=== PATIENT | male | born 1935 | race Caucasian/White ===

== ENCOUNTER 2022-06-20 10:37 | Observation (INO) | payer OTHER ==
[~2022-06-20] VITALS: Ht 177.8 cm; Wt 116.8 kg
--- NOTE | 2022-06-20 10:42 | NUR ---
PT TO BED 1. GOWN AND VITAL TAKEN.
--- NOTE | 2022-06-20 10:44 | NUR ---
PT BIB DAUGHTER, AWAKE AND ALERT AOX4, NO SOB OR DISTRESS. PT WAS HERE IN THE HOSPITAL VISITIG HIS IN MED SURGE. PT STATED HE TOOK HIS GLACOMA EYE DROPS AND STARTED TO FEEK DIZZY AND WEAK. PT DENIES VOMITING, AND PAIN. PT HAS HX OF CHF, HTN, GLACOMA, THYROID, AND OPEN TEART SURGERY.
--- NOTE | 2022-06-20 10:45 | NUR ---
MD DR STODDARD AT BEDSIDE
[2022-06-20 10:49] VITALS: BP_SYST 130
--- NOTE | 2022-06-20 11:17 | NUR ---
COVID SWAB COLLECTED AND SENT TO LAB.
[2022-06-20 11:29] LABS: BASOPHILS % (AUTO) 0.4 % (0.0-2.0); EOSINOPHILS # (AUTO) 0.3 K/uL (0.0-0.4); EOSINOPHILS % (AUTO) 4.3 % (0.0-4.0); HEMATOCRIT 37.2 % (36-54); HEMOGLOBIN 12.3 g/dL (14.0-18.0); LYMPHOCYTES # (AUTO) 0.9 K/uL (1.0-5.5); LYMPHOCYTES % (AUTO) 14.8 % (20.5-51.5); MEAN CORPUSCULAR HEMOGLOBIN 32 pg (27-31); MEAN CORPUSCULAR HGB CONC 33 % (32-36); MEAN CORPUSCULAR VOLUME 97 fL (79.0-98.0); MONOCYTES # (AUTO) 0.5 K/uL (0.0-1.0); MONOCYTES % (AUTO) 7.9 % (1.7-9.3); NEUTROPHILS # (AUTO) 4.4 K/uL (1.8-7.7); NEUTROPHILS % (AUTO) 72.6 % (40.0-70.0); PLATELET COUNT (AUTO) 150 K/uL (130-430); RED BLOOD CELL COUNT(AUTO) 3.85 MIL/uL (4.2-6.2); RED CELL DISTRIBUTION WIDTH 14.6 % (9.0-15.0)
[2022-06-20] MEDS ORDERED: SYN50 PO (11:39)
[2022-06-20] MEDS ORDERED: METO25TA3 PO (11:39)
[2022-06-20] MEDS ORDERED: ISOS30TA85 PO (11:39)
[2022-06-20] MEDS ORDERED: SACU1TAB PO (11:39)
[2022-06-20] MEDS ORDERED: ASPI-1155 PO (11:39)
[2022-06-20] MEDS ORDERED: ALLO100T91 PO (11:39)
[2022-06-20] MEDS ORDERED: LIP10 PO (11:39)
[2022-06-20] MEDS ORDERED: FURO-150 PO (11:39)
[2022-06-20] MEDS ORDERED: FINA5TAB3 PO (11:39)
[2022-06-20] MEDS ORDERED: TAMS-11 PO (11:39)
--- NOTE | 2022-06-20 12:09 | NUR ---
Medication reconciliation completed with information provided by PATIENT LIST. Any prior medication reconciliation on file was reviewed and corrected.
[2022-06-20 12:10] LABS: ANION GAP 9 (5-15); CALCIUM 8.4 mg/dL (8.4-11.0); CHLORIDE 102 mmol/L (98-107); CREATININE 1.51 mg/dL (0.55-1.30); GLUCOSE 104 mg/dL (70-99); UREA NITROGEN, BLOOD 29 mg/dL (8-21)
[2022-06-20 12:17] LABS: ALANINE AMINOTRANSFERASE 11 U/L (12-78); ALBUMIN 3.4 g/dL (3.4-4.8); ASPARTATE AMINOTRANSFERASE 6 U/L (10-37); TOTAL BILIRUBIN 0.4 mg/dL (0.0-1.0)
[2022-06-20] MEDS ORDERED: HYDROcodone/ACETAMIN 10-325 MG TAB PO PRN (12:30)
[2022-06-20] MEDS ORDERED: ONDANSETRON HCL 4 MG/2 ML VIAL IVP PRN (12:30)
[2022-06-20] MEDS ORDERED: ACETAMINOPHEN 325 MG TABLET PO PRN ×2 (12:30→13:00)
[2022-06-20] MEDS ORDERED: ALBUTEROL SULFATE 0.083% 2.5 MG/3 ML VIAL.NEB INH PRN (12:30)
--- NOTE | 2022-06-20 12:43 | NUR ---
Admit bed requested Patient will be admitted to care of . Admitted to TELE unit. Diagnosis BRADYCARDIA/GEN WEAKNES Inpatient (Yes or No) Y Observation (Yes or No) N Orientation concerns or request close to nursing station (Yes or No) N Covid Status NEG On vent or bipap N Isolation requirements N Needs a sitter N From Home (Yes or if No enter name of facility) YES Requires Dialysis (Yes or No) N Med Rec Completed (Yes of No) Y
[2022-06-20] MEDS: NACL 0.9% 1,000 ML IV SCH (14:25)
--- NOTE | 2022-06-20 17:46 | NUR ---
Patient will be admitted to care of DR BUNCH. Admitted to TELE unit. Will go to room 102B. Belongings list completed. Complete and up to date summary report printed. SBAR report to be given at bedside with opportunity for questions.
[2022-06-20 18:06] VITALS: BP_SYST 144
--- NOTE | 2022-06-20 18:06 | NUR ---
receive the patient from the emergency room rn aox4 divehi speaking aox4 admitting diagnosis of bradycardia
--- NOTE | 2022-06-20 19:30 | NUR ---
Opening Note late entry Received patient resting in bed, no distress; Non labored breathing on room air. Family is visiting at bedside, they had questions. I answered their questions and informed Doctor will do rounds in morning. They requested a meal tray for him, and [employer] was unable to get food from cafeteria and sandwich from pantry will be provided
--- NOTE | 2022-06-20 22:15 | NUR ---
Tylenol late entry Patient reporting a mild headache and was given Tylenol. He swallowed tabs with water.
[2022-06-20 22:17] VITALS: BP_SYST 161
--- NOTE | 2022-06-20 22:20 | NUR ---
restroom, BM Patient ambulated to restroom with standby assist, he was steady. He reports BM. Returned to bed, safety precautions in place and call light w/in reach.
[2022-06-21 00:50] VITALS: BP_SYST 128
[2022-06-21] MEDS: LEVOTHYROXINE SODIUM 0.05 MG TABLET PO SCH (06:30)
[2022-06-21] MEDS: NACL 0.9% 1,000 ML IV SCH (06:31)
--- NOTE | 2022-06-21 06:36 | NUR ---
closing note Resting in comfortable position, no distress. Safety precautions in place. Administered Synthroid and hung new bag of NS; infusing well. Needs met throughout shift, will endorse care.
[2022-06-21 07:59] LABS: BASOPHILS % (AUTO) 0.4 % (0.0-2.0); EOSINOPHILS # (AUTO) 0.3 K/uL (0.0-0.4); EOSINOPHILS % (AUTO) 4.8 % (0.0-4.0); HEMATOCRIT 36.3 % (36-54); LYMPHOCYTES # (AUTO) 1.1 K/uL (1.0-5.5); LYMPHOCYTES % (AUTO) 19.8 % (20.5-51.5); MEAN CORPUSCULAR HEMOGLOBIN 32 pg (27-31); MEAN CORPUSCULAR HGB CONC 33 % (32-36); MEAN CORPUSCULAR VOLUME 96 fL (79.0-98.0); MONOCYTES # (AUTO) 0.4 K/uL (0.0-1.0); MONOCYTES % (AUTO) 7.8 % (1.7-9.3); NEUTROPHILS # (AUTO) 3.8 K/uL (1.8-7.7); NEUTROPHILS % (AUTO) 67.2 % (40.0-70.0); PLATELET COUNT (AUTO) 142 K/uL (130-430); RED BLOOD CELL COUNT(AUTO) 3.78 MIL/uL (4.2-6.2); RED CELL DISTRIBUTION WIDTH 14.8 % (9.0-15.0); WHITE BLOOD COUNT (AUTO) 5.7 K/uL (4.8-10.8)
[2022-06-21 09:03] LABS: ALANINE AMINOTRANSFERASE 19 U/L (12-78); ANION GAP 11 (5-15); ASPARTATE AMINOTRANSFERASE 13 U/L (10-37); CALCIUM 8.5 mg/dL (8.4-11.0); CHLORIDE 105 mmol/L (98-107); CREATININE 1.18 mg/dL (0.55-1.30); GLUCOSE 101 mg/dL (70-99); PHOSPHORUS 3.7 mg/dL (2.7-4.5); TOTAL BILIRUBIN 0.3 mg/dL (0.0-1.0); UREA NITROGEN, BLOOD 25 mg/dL (8-21)
[2022-06-21 09:14] VITALS: BP_SYST 156
[2022-06-21] MEDS: SACUBITRIL/VALSARTAN 24 MG-26 MG 1 TABLET PO SCH (09:47)
[2022-06-21] MEDS: ALLOPURINOL 100 MG TABLET (ZYLOPRIM) PO SCH (09:47)
[2022-06-21] MEDS: ASPIRIN 81 MG TAB.CHEW PO SCH (09:47)
[2022-06-21] MEDS: ISOSORBIDE MONONITRATE 30 MG TAB.ER.24H PO SCH (09:47)
[2022-06-21] MEDS: ATORVASTATIN 10 MG TABLET PO SCH (09:47)
[2022-06-21] MEDS: FINASTERIDE 5 MG TABLET (PROSCAR) PO SCH (09:47)
[2022-06-21] MEDS: TAMSULOSIN HCL 0.4 MG CAP PO SCH (09:47)
[2022-06-21 09:54] LABS: FREE T4 (FREE THYROXINE) 1.1 ng/dL (0.6-1.6); THYROID STIMULATING HORMONE 4.13 uIu/mL (0.34-4.82)
[2022-06-21] MEDS ORDERED: THEOPHYLLINE ANHYDROUS 300 MG TAB.SR.12H PO ONE (10:30)
[2022-06-21 12:00] VITALS: BP_SYST 149
[2022-06-21 16:00] VITALS: BP_SYST 151
[2022-06-21 20:00] VITALS: BP_SYST 143
[2022-06-21] MEDS: THEOPHYLLINE ANHYDROUS 300 MG TAB.SR.12H PO SCH (21:07)
[2022-06-22] VITALS: BP_SYST 133
[2022-06-22 02:41] VITALS: BP_SYST 141
--- NOTE | 2022-06-22 06:00 | NUR ---
Mr. Dennis has been assessed as indicated. He continues to deny pain. \he has not had a BM this shift, He has voided x1. He has a wheeled walker at the bedside. He has been visited by one of his sons this shift. He presently has no s/s of distress or discomfort. He has replaced his R hearing aide that he has allowed to charge over night. He does not have the Left hearing aide here. He states that it does not work and it is at home. He is resting quietly at this time
[2022-06-22] MEDS: LEVOTHYROXINE SODIUM 0.05 MG TABLET PO SCH (06:03)
--- NOTE | 2022-06-22 07:22 | NUR ---
Handoff has been given to Yanira
[2022-06-22 08:00] VITALS: BP_SYST 142
[2022-06-22] MEDS: FINASTERIDE 5 MG TABLET (PROSCAR) PO SCH (09:00)
[2022-06-22] MEDS: ASPIRIN 81 MG TAB.CHEW PO SCH (09:00)
[2022-06-22] MEDS: THEOPHYLLINE ANHYDROUS 300 MG TAB.SR.12H PO SCH (09:00)
[2022-06-22] MEDS: TAMSULOSIN HCL 0.4 MG CAP PO SCH (09:00)
[2022-06-22] MEDS: ISOSORBIDE MONONITRATE 30 MG TAB.ER.24H PO SCH (09:01)
[2022-06-22] MEDS: ATORVASTATIN 10 MG TABLET PO SCH (09:01)
[2022-06-22] MEDS: SACUBITRIL/VALSARTAN 24 MG-26 MG 1 TABLET PO SCH (09:01)
[2022-06-22] MEDS: ALLOPURINOL 100 MG TABLET (ZYLOPRIM) PO SCH (09:01)
[2022-06-22 11:21] VITALS: BP_SYST 142
[2022-06-22 15:24] VITALS: BP_SYST 117
[2022-06-22 15:58] VITALS: BP_SYST 117
--- NOTE | 2022-06-22 16:51 | NUR ---
RN NOTES: DISCHARGE INSTRUCTIONS GIVEN TO THE DAUGHTER. VERBALIZED UNDERSTANDING.PATIENT IS NOT IN DISTRESS. NOT IN PAIN. [facility]. DISCHARGED STABLE .
== END 2022-06-22 16:50 | disposition home or self-care (01) ==
LOC: SED 10:37 → STU 12:23 → INTOOBSV 12:23 → STU 17:20
PROVIDERS: ADMIT Internal Medicine; ATTEND Internal Medicine
DX: R00.1 Bradycardia, unspecified (principal); Z20.822 Contact with and (suspected) exposure to COVID-19; I25.10 Atherosclerotic heart disease of native coronary artery without angina pectoris; I10 Essential (primary) hypertension; E11.9 Type 2 diabetes mellitus without complications; H40.9 Unspecified glaucoma; R42 Dizziness and giddiness; E03.9 Hypothyroidism, unspecified; R55 Syncope and collapse; N40.0 Benign prostatic hyperplasia without lower urinary tract symptoms; I25.2 Old myocardial infarction; E66.01 Morbid (severe) obesity due to excess calories; M10.9 Gout, unspecified; Z79.899 Other long term (current) drug therapy; Z95.1 Presence of aortocoronary bypass graft; Z79.82 Long term (current) use of aspirin; Z87.891 Personal history of nicotine dependence; Z96.653 Presence of artificial knee joint, bilateral
CPT/HCPCS: 99285; 96361 ×2; 96360; 71045; 87426; 80053 ×2; 85025 ×2; 84484; 36415 ×2; 93005 ×3; 83605; 93306; 83880; 84439; 83735; 84100; 84443; G0378